=== PATIENT | female | born 1950 | race Two or more races ===

== ENCOUNTER 2021-06-01 08:00 | Outpatient (CLI) | payer OTHER | END 2021-06-01 08:30 | disposition home or self-care (01) | LOC: PPH VACUNA 08:00 | PROVIDERS: ATTEND Emergency Medicine Pediatric Emergency Medicine | DX: Z23 Encounter for immunization (principal) ==

== ENCOUNTER 2022-12-28 11:45 | Inpatient (IN) | payer OTHER ==
[~2022-12-28] VITALS: Ht 160 cm; Wt 56.7 kg
[2022-12-28 13:18] LABS: HEMOGLOBIN 12.4 g/dL (12.0-15.00); MEAN CELL VOLUME 89.6 fL (80.00-100.00); MEAN CORPUSCULAR HEMOGLOBIN 30.1 pg (27.00-32.0); MEAN CORPUSCULAR HGB CONC 33.6 g/dl (32.0-36.0); PLATELET COUNT 272 K/uL (150-450); RED BLOOD COUNT 4.13 M/uL (4.00-6.00); RED CELL DISTRIBUTION WIDTH 13.1 % (11.5-14.5)
[2022-12-28 13:37] LABS: INR 1.03; PARTIAL THROMBOPLASTIN TIME 28.6 SECONDS (22.0-34.0); PROTHROMBIN TIME 10.8 SECONDS (9.0-11.5)
[2022-12-28 13:46] LABS: URINE APPEARANCE Clear; URINE BILIRRUBIN Negative (NEGATIVE); URINE BLOOD Negative; URINE COLOR Dark Yellow; URINE GLUCOSE Negative (NEGATIVE); URINE LEUKOCYTE Negative; URINE NITRATE Negative; URINE UROBILINOGEN 0.2 E.U./dl
[2022-12-28 13:50] LABS: URINE BACTERIA 91.8 uL (0.0-1933); URINE EPITHELIAL CELLS 1.6 uL (0.0-38.8); URINE RBC 2.5 uL (0.0-20.8); URINE WBC 2.3 uL (0.0-23.2)
[2022-12-28 13:52] LABS: URINE PROTEIN 100 (NEGATIVE)
[2022-12-28 14:19] LABS: CALCIUM 9.9 mg/dL (8.5-10.1); CREATININE SERUM 0.72 mg/dL (0.55-1.02); GFR 79.62; POTASSIUM 3.86 mEq/L (3.5-5.1)
[2022-12-28] MEDS ORDERED: HYDROCHLOROTH12.5 MG PO (14:31)
[2022-12-28] MEDS ORDERED: HORIZANT300 MG PO (14:31)
[2022-12-28] MEDS ORDERED: COZAAR100 MG PO (14:31)
[2022-12-28] MEDS ORDERED: METFORMIN HCL500 MG PO (14:32)
[2022-12-28] MEDS ORDERED: NORVASC5 MG PO (14:33)
[2022-12-28] MEDS ORDERED: NEURI PO (14:33)
[2023-01-04 07:52] LABS: HEMATOCRIT 36.5 % (36.0-45.00); HEMOGLOBIN 12.4 g/dL (12.0-15.00); MEAN CELL VOLUME 88.8 fL (80.00-100.00); MEAN CORPUSCULAR HEMOGLOBIN 30.3 pg (27.00-32.0); MEAN CORPUSCULAR HGB CONC 34.1 g/dl (32.0-36.0); PLATELET COUNT 259 K/uL (150-450); RED BLOOD COUNT 4.11 M/uL (4.00-6.00); RED CELL DISTRIBUTION WIDTH 13.1 % (11.5-14.5)
[2023-01-04 08:18] LABS: ALBUMIN 3.2 gm/dL (3.4-5.0); CALCIUM 9.1 mg/dL (8.5-10.1); GFR 54.5; PHOSPHOROUS 3.6 mg/dL (2.5-4.9); POTASSIUM 4.63 mEq/L (3.5-5.1)
== END 2023-01-04 13:35 | disposition home or self-care (01) | DRG 658 ==
LOC: O/R 01-03 08:34 → SURG-SUITE 01-03 11:30 → SURH 01-03 19:16
PROVIDERS: ADMIT Urology; ATTEND Urology
PROC: 0TT04ZZ Resection of Right Kidney, Percutaneous Endoscopic Approach (ICD-10-PCS; principal; 2023-01-03 11:30)
DX: C64.1 Malignant neoplasm of right kidney, except renal pelvis (principal); Z20.822 Contact with and (suspected) exposure to COVID-19

== ENCOUNTER 2023-01-28 13:31 | Emergency (ER) | payer OTHER ==
[~2023-01-28] VITALS: Ht 162.6 cm; Wt 54.9 kg
[~2023-01-28 13:31] MED LIST: COZAAR100 MG PO; HORIZANT300 MG PO; HYDROCHLOROTH12.5 MG PO; METFORMIN HCL500 MG PO; NEURI PO; NORVASC5 MG PO
[2023-01-28] MEDS ORDERED: DOLOGESIC-DF 51 EACH PO (15:15)
[2023-01-28] MEDS ORDERED: ZANAFLEX2 M1 PO (15:15)
[2023-01-29] MEDS ORDERED: ACTIDOGESIC-DF1 EACH PO (17:43)
[2023-01-29] MEDS ORDERED: GABAPENTIN100 M2 PO (17:44)
[2023-01-29] MEDS ORDERED: PRAVASTATIN SOD10 MG PO (17:45)
== END 2023-01-28 15:25 | disposition home or self-care (01) ==
LOC: ER 13:32
DX: M62.830 Muscle spasm of back (principal); I10 Essential (primary) hypertension; E11.9 Type 2 diabetes mellitus without complications; Z79.84 Long term (current) use of oral hypoglycemic drugs; Z91.013 Allergy to seafood
CPT/HCPCS: 71045; 72070; 96372; 99283; J1885; J2360

== ENCOUNTER 2023-01-29 17:02 | Inpatient (IN) | payer OTHER ==
[~2023-01-29] VITALS: Ht 160 cm; Wt 54.4 kg
[~2023-01-29 17:02] MED LIST changes: +DOLOGESIC-DF 51 EACH PO; +ZANAFLEX2 M1 PO
[2023-01-29] MEDS ORDERED: ACTIDOGESIC-DF1 EACH PO (17:43)
[2023-01-29] MEDS ORDERED: GABAPENTIN100 M2 PO (17:44)
[2023-01-29] MEDS ORDERED: PRAVASTATIN SOD10 MG PO (17:45)
[2023-01-29 19:59] LABS: HEMATOCRIT 38.5 % (36.0-45.00); HEMOGLOBIN 13.4 g/dL (12.0-15.00); MEAN CELL VOLUME 87.1 fL (80.00-100.00); MEAN CORPUSCULAR HEMOGLOBIN 30.2 pg (27.00-32.0); MEAN CORPUSCULAR HGB CONC 34.7 g/dl (32.0-36.0); PLATELET COUNT 310 K/uL (150-450); RED BLOOD COUNT 4.42 M/uL (4.00-6.00); RED CELL DISTRIBUTION WIDTH 12.6 % (11.5-14.5)
[2023-01-29 20:46] LABS: ALBUMIN 4.1 gm/dL (3.4-5.0); BILIRUBIN TOTAL 0.36 mg/dL (0.3-1.2); CALCIUM 10.4 mg/dL (8.5-10.1); CREATININE SERUM 1.1 mg/dL (0.55-1.02); GFR 48.82; GLOBULINA 4.8 G/DL (2.4-3.5); POTASSIUM 4.74 mEq/L (3.5-5.1); TOTAL PROTEIN 8.9 gm/dL (6.4-8.2)
[2023-01-30 03:44] LABS: INR 1.02; PARTIAL THROMBOPLASTIN TIME 27.6 SECONDS (22.0-34.0); PROTHROMBIN TIME 10.7 SECONDS (9.0-11.5)
[2023-01-30 03:45] LABS: PHOSPHOROUS 3.1 mg/dL (2.5-4.9)
[2023-01-30 09:06] LABS: URINE APPEARANCE Clear; URINE BILIRRUBIN Negative (NEGATIVE); URINE BLOOD Negative; URINE COLOR Yellow; URINE GLUCOSE Negative (NEGATIVE); URINE LEUKOCYTE Trace; URINE NITRATE Negative; URINE PROTEIN Trace (NEGATIVE); URINE UROBILINOGEN 0.2 E.U./dl
[2023-01-30 09:11] LABS: URINE BACTERIA 18.8 uL (0.0-1933); URINE WBC 4.9 uL (0.0-23.2)
[2023-01-30 09:14] LABS: URINE EPITHELIAL CELLS 0.7 uL (0.0-38.8); URINE RBC 1.2 uL (0.0-20.8)
[2023-02-02 03:59] LABS: HEMATOCRIT 30.9 % (36.0-45.00); HEMOGLOBIN 10.6 g/dL (12.0-15.00); MEAN CELL VOLUME 86.1 fL (80.00-100.00); MEAN CORPUSCULAR HEMOGLOBIN 29.4 pg (27.00-32.0); MEAN CORPUSCULAR HGB CONC 34.1 g/dl (32.0-36.0); PLATELET COUNT 253 K/uL (150-450); RED BLOOD COUNT 3.59 M/uL (4.00-6.00); RED CELL DISTRIBUTION WIDTH 12.6 % (11.5-14.5)
[2023-02-02 04:22] LABS: ALBUMIN 3.3 gm/dL (3.4-5.0); BILIRUBIN TOTAL 0.38 mg/dL (0.3-1.2); CALCIUM 9.2 mg/dL (8.5-10.1); CREATININE SERUM 1.34 mg/dL (0.55-1.02); GFR 38.88; GLOBULINA 3.5 G/DL (2.4-3.5); MAGNESIUM 1.9 mg/dL (1.8-2.4); PHOSPHOROUS 3.4 mg/dL (2.5-4.9); POTASSIUM 3.91 mEq/L (3.5-5.1); TOTAL PROTEIN 6.8 gm/dL (6.4-8.2)
[2023-02-02 04:31] LABS: C-REACTIVE PROTEIN 0.34 MG/DL (0.00-0.29)
== END 2023-02-03 21:15 | disposition home or self-care (01) | DRG 390 ==
LOC: ER 17:03 → SURG 23:48 → SURH 02-02 12:01
PROVIDERS: General Practice; Internal Medicine Infectious Disease; ADMIT Specialist; ATTEND Specialist
PROC: BW21ZZZ Computerized Tomography (CT Scan) of Abdomen and Pelvis (ICD-10-PCS; principal; 2023-01-29)
DX: K56.0 Paralytic ileus (principal); K52.9 Noninfective gastroenteritis and colitis, unspecified; I10 Essential (primary) hypertension; E11.9 Type 2 diabetes mellitus without complications; Z79.4 Long term (current) use of insulin

== ENCOUNTER 2023-03-01 18:02 | Emergency (ER) | payer OTHER ==
[~2023-03-01] VITALS: Ht 162.6 cm; Wt 54.4 kg
[~2023-03-01 18:02] MED LIST changes: +ACTIDOGESIC-DF1 EACH PO; +GABAPENTIN100 M2 PO; +PRAVASTATIN SOD10 MG PO
[2023-03-01 19:55] LABS: PH,URINE 5.5 (5.0-8.0); URINE APPEARANCE Cloudy; URINE BILIRRUBIN Negative (NEGATIVE); URINE BLOOD Negative; URINE COLOR Yellow; URINE GLUCOSE Negative (NEGATIVE); URINE LEUKOCYTE Large; URINE NITRATE Negative; URINE PROTEIN 30 (NEGATIVE); URINE UROBILINOGEN 0.2 E.U./dl
[2023-03-01 19:56] LABS: URINE BACTERIA 1296.5 uL (0.0-1933); URINE EPITHELIAL CELLS 4.4 uL (0.0-38.8); URINE RBC 2.8 uL (0.0-20.8); URINE WBC 619.3 uL (0.0-23.2)
[2023-03-01 19:56] LABS: HEMATOCRIT 34.9 % (36.0-45.00); HEMOGLOBIN 11.4 g/dL (12.0-15.00); MEAN CELL VOLUME 85.3 fL (80.00-100.00); MEAN CORPUSCULAR HGB CONC 32.8 g/dl (32.0-36.0); PLATELET COUNT 548 K/uL (150-450); RED BLOOD COUNT 4.09 M/uL (4.00-6.00); RED CELL DISTRIBUTION WIDTH 13.5 % (11.5-14.5)
[2023-03-01 20:16] LABS: CALCIUM 9.7 mg/dL (8.5-10.1); CREATININE SERUM 1.01 mg/dL (0.55-1.02); GFR 53.88; POTASSIUM 4.06 mEq/L (3.5-5.1)
[2023-03-01] MEDS ORDERED: DUI500 PO (22:44)
[2023-03-01] MEDS ORDERED: COLACE100 MG PO (22:47)
== END 2023-03-01 23:22 | disposition home or self-care (01) ==
LOC: ER 18:03
PROVIDERS: Nurse Practitioner Family
DX: K59.00 Constipation, unspecified (principal); M54.50 Low back pain, unspecified; E11.9 Type 2 diabetes mellitus without complications; Z79.84 Long term (current) use of oral hypoglycemic drugs; K57.30 Diverticulosis of large intestine without perforation or abscess without bleeding; N39.0 Urinary tract infection, site not specified; Z91.013 Allergy to seafood

== ENCOUNTER 2023-03-10 15:19 | Emergency (ER) | payer OTHER ==
[~2023-03-10] VITALS: Ht 162.6 cm; Wt 54.4 kg
[~2023-03-10 15:19] MED LIST changes: +COLACE100 MG PO; +DUI500 PO
== END 2023-03-10 18:24 | disposition home or self-care (01) ==
LOC: ER 15:19
DX: M54.9 Dorsalgia, unspecified (principal); Z91.013 Allergy to seafood
CPT/HCPCS: 72100; 96372; 99284; J2360

== ENCOUNTER 2023-03-12 10:44 | Emergency (ER) | payer OTHER ==
[~2023-03-12] VITALS: Ht 162.6 cm; Wt 54.4 kg
== END 2023-03-12 19:58 | disposition home or self-care (01) ==
LOC: ER 10:44
DX: K59.00 Constipation, unspecified (principal); M54.50 Low back pain, unspecified; Z91.013 Allergy to seafood; M62.830 Muscle spasm of back; Z85.89 Personal history of malignant neoplasm of other organs and systems; E11.9 Type 2 diabetes mellitus without complications; Z79.84 Long term (current) use of oral hypoglycemic drugs; I10 Essential (primary) hypertension
CPT/HCPCS: 72100; 74176; 74240; 96372; 99284; J2250; J3490